=== PATIENT | female | born 1985 | race Caucasian/White ===

== ENCOUNTER 2022-09-05 21:20 | Emergency (ER) | payer BC, OTHER ==
[~2022-09-05] VITALS: Ht 152.4 cm; Wt 64.9 kg
[2022-09-05 21:29] VITALS: BP 108/86
--- NOTE | 2022-09-05 22:30 | NUR ---
Called - no show in lobby or outside.
== END 2022-09-05 22:57 | disposition left against medical advice (07) ==
LOC: MED 21:20
DX: R10.9 Unspecified abdominal pain (principal); Z53.21 Procedure and treatment not carried out due to patient leaving prior to being seen by health care provider